=== PATIENT | male | born 1945 | race Caucasian/White ===

== ENCOUNTER 2020-04-12 11:50 | Emergency (ER) | payer MEDICARE, SELFPAY ==
[2020-04-12 12:02] VITALS: BP 161/84; PULSE 96; RESP 18; TEMP 37.2; O2SAT 99
--- NOTE | 2020-04-12 12:08 | ED.WOUNDLAC ---
HPI - Wound/Laceration General Chief Complaint: Wound/Laceration Stated Complaint: Laceration on finger Time Seen by Provider: 04/12/20 12:00 Source: patient Mode of arrival: ambulatory Limitations: no limitations History of Present Illness HPI narrative: Maximilian Puckett is a 74 yo male with a PMH of HTN, who comes to express care with a laceration of the L distal index Related Data Home Medications Medication Instructions Recorded Confirmed aspirin 325 mg tablet,delayed 650 mg PO BID tablet 11/25/19 11/25/19 release Allergies Allergy/AdvReac Type Severity Reaction Status Date / Time No Known Allergies Allergy Verified 11/25/19 08:31 PMFSH Past Medical History Medical History Essential hypertension Screening for colon cancer Family History Family History Mother Diabetes mellitus Social History Social History (Updated 04/12/20 @ 13:00 by Brandi Stiles CNP) Smoking status: Former smoker Smoking end date: 03/30/1966 Alcohol intake: current Course Vital Signs Vital signs: Vital Signs Temperature 99.0 F 04/12/20 12:02 Pulse Rate 96 04/12/20 12:02 Respiratory Rate 18 04/12/20 12:02 Blood Pressure 161/84 H 04/12/20 12:02 Pulse Oximetry 99 04/12/20 12:02 Temperature 99.0 F 04/12/20 12:02 Pulse Rate 96 04/12/20 12:02 Respiratory Rate 18 04/12/20 12:02 Blood Pressure 161/84 H 04/12/20 12:02 Pulse Oximetry 99 04/12/20 12:02 Discharge Plan Discharge Clinical Impression: Laceration Patient Disposition: Home, Self-Care Condition: Stable Instructions: Antibiotic Form, Laceration (DC) Prescriptions: New cephalexin [Keflex] 500 mg capsule 500 mg PO Q8H Qty: 30 RF: 0 No Action aspirin [Aspir-Marlin] 325 mg tablet,delayed release (DR/EC) 650 mg PO BID RF: 0 lisinopril-hydrochlorothiazide 20-25 mg tablet See Rx Instructions .ROUTE .COMPLEX Qty: 90 RF: 0 Follow-up/Referrals: Vahid Gonzalez DO [Primary Care Provider] -
[2020-04-12] MEDS: TETANUS,DIPHTHERIA,AC PERTUSSIS ADULT (0.5 ML) BOOSTRIX IM (12:32)
--- NOTE | 2020-04-12 12:56 | ED.WOUNDLAC ---
HPI - Wound/Laceration General Chief Complaint: Wound/Laceration Stated Complaint: Laceration on finger Time Seen by Provider: 04/12/20 12:00 Source: patient Mode of arrival: ambulatory Limitations: no limitations History of Present Illness HPI narrative: Maximilian Puckett is 74 yo male with a PMH of HTN who with a laceration to his left index finger distal tip that occurred POA. Cutting branches in the backyard with a large knife and caught the tip of his finger resulting in almost amputating that the tip of the finger and cut into the nail. bleeding is not controlled at this time; finger has a pressure dressing on and will be soaked and cleaned prior to repair of laceration Related Data Home Medications Medication Instructions Recorded Confirmed aspirin 325 mg tablet,delayed 650 mg PO BID tablet 11/25/19 11/25/19 release Allergies Allergy/AdvReac Type Severity Reaction Status Date / Time No Known Allergies Allergy Verified 11/25/19 08:31 Review of Systems Review of Systems: Narrative: CONSTITUTIONAL: Denies fever, chills, sweats. EYES: Denies visual changes, redness, discharge. ENT: Denies rhinorrhea, congestion, sore throat, otalgia. CARDIOVASCULAR: Denies chest pain, palpitations, edema. RESPIRATORY: Denies dyspnea, wheezing, cough GASTROINTESTINAL: Denies abdominal pain, nausea, vomiting, diarrhea. GENITOURINARY: Denies dysuria, hematuria, abnormal discharge SKIN: Denies rash or itching. Laceration to left distal fingertip NEUROLOGIC: Denies numbness, or focal weakness. PSYCHIATRIC: Denies anxiety or depression. PMFSH Past Medical History Medical History Essential hypertension Screening for colon cancer Family History Family History Mother Diabetes mellitus Social History Social History (Updated 04/12/20 @ 13:00 by Brandi Stiles CNP) Smoking status: Former smoker Smoking end date: 03/30/1966 Alcohol intake: current Comments At time of signature, I agree with nursing past medical, surgical, social and family history. There is no relevant family history pertinent to the presenting complaint. Exam Narrative: Exam Narrative: GENERAL: This is a well-nourished, well-developed patient, in mild distress. HEAD: normocephalic, atraumatic. EYES:. Sclera clear/white. Vision is grossly intact. EARS: External ears normal, Hearing grossly intact. NOSE: External nose normal without nasal discharge, nares without redness, no rhinorrhea. THROAT: Mucous membranes moist, NECK: Neck supple, CARDIOVASCULAR: Regular rate and rhythm without murmurs, gallops, or rubs. RESPIRATORY: Clear to auscultation. Breath sounds equal bilaterally. No wheezes, rales, or rhonchi. GASTROINTESTINAL: Abdomen soft, SKIN: warm, intact with no suspicious lesions or rash, good texture and turgor. Laceration to left distal fingertip through nail NEURO: awake, alert, and oriented to person, place and time. There were no obvious focal neurologic abnormalities. Steady gait EXTREMITIES: Normal range of motion. BACK: Nontender without deformity Course Course Emergency Course: [facility]eration to left distal fingertip through the nail which will need to be repaired Repaired with 4-0 Vicryl and nail glued, started on Keflex Patient is to have sutures removed in 6 to 7 days, protective dressing and splint applied Vital Signs Vital signs: Vital Signs Temperature 99.0 F 04/12/20 12:02 Pulse Rate 96 04/12/20 12:02 Respiratory Rate 18 04/12/20 12:02 Blood Pressure 161/84 H 04/12/20 12:02 Pulse Oximetry 99 04/12/20 12:02 Temperature 99.0 F 04/12/20 12:02 Pulse Rate 96 04/12/20 12:02 Respiratory Rate 18 04/12/20 12:02 Blood Pressure 161/84 H 04/12/20 12:02 Pulse Oximetry 99 04/12/20 12:02 Procedures Laceration Laceration 1: Date:
== END 2020-04-12 13:09 | disposition home or self-care (01) ==
PROVIDERS: Emergency Provider Nurse Practitioner; PCP Internal Medicine
DX: S61.211A Laceration without foreign body of left index finger without damage to nail, initial encounter (principal); Z23 Encounter for immunization; Z87.891 Personal history of nicotine dependence; I10 Essential (primary) hypertension; Z79.82 Long term (current) use of aspirin
CPT/HCPCS: 12001; 90471; 90715; 99213; G0463